=== PATIENT | male | born 1960 | race Caucasian/White ===

== ENCOUNTER → 2016-07-31 | Day surgery (SDC) | payer OTHER | END | disposition home or self-care (01) | LOC: FAS 09:50 | DX: H26.9 Unspecified cataract (principal); I10 Essential (primary) hypertension; M19.90 Unspecified osteoarthritis, unspecified site; Z88.0 Allergy status to penicillin; Z98.890 Other specified postprocedural states; F17.200 Nicotine dependence, unspecified, uncomplicated ==

== ENCOUNTER → 2020-08-22 | Day surgery (SDC) | payer OTHER ==
[~2020-08-22] MED LIST: ASPIRIN81 MG PO; LIPITOR20 MG PO; MOBIC7.5 MG PO; NITROQUIK SL0.4 MG SL; PRINIVIL20 MG PO; RANOLAZINE ER500 MG PO; VITAMIN D310 MC4 PO; [UNRECOGNIZED DRUG - CODE]
[2020-08-22 07:43] LABS: HCT 37.4 % (42.0-52.0); HGB 13.4 g/dl (13.2-18.0); MCH 35.6 pg (25.0-31.0); MCHC 35.8 g/dL (32.0-36.0); MCV 99.5 fL (78.0-100.0); MPV 10.8 fL (6.0-9.5); RBC 3.76 M/uL (4.70-6.00); RDW 13.2 % (11.5-14.0); WBC 3.9 K/uL (4.0-10.5)
[2020-08-22 08:07] LABS: ALBUMIN 3.5 g/dL (3.4-5.0); BILIRUBIN - TOTAL 1.7 mg/dL (0.2-1.0); BUN/CREAT RATIO (CALC) 9.8 RATIO; CREATININE 0.92 mg/dL (0.67-1.17); GLOBULIN (CALCULATION) 3.4 g/dL; TOTAL PROTEIN 6.9 g/dL (6.4-8.2)
== END | disposition home or self-care (01) ==
LOC: FAS 07:11
PROVIDERS: Surgery
DX: Z12.11 Encounter for screening for malignant neoplasm of colon (principal); D12.3 Benign neoplasm of transverse colon; I10 Essential (primary) hypertension; I25.799 Atherosclerosis of other coronary artery bypass graft(s) with unspecified angina pectoris; M19.90 Unspecified osteoarthritis, unspecified site; E78.00 Pure hypercholesterolemia, unspecified; E78.5 Hyperlipidemia, unspecified; F17.210 Nicotine dependence, cigarettes, uncomplicated; F10.10 Alcohol abuse, uncomplicated; Z88.0 Allergy status to penicillin; Z98.890 Other specified postprocedural states; Z82.49 Family history of ischemic heart disease and other diseases of the circulatory system; Z20.822 Contact with and (suspected) exposure to COVID-19
CPT/HCPCS: 36415; 80053; J1610; J2250; J2704; J7120